=== PATIENT | female | born 1990 | race Caucasian/White ===

== ENCOUNTER 2017-03-15 13:24 | Emergency (ER) | payer SELFPAY ==
[~2017-03-15] VITALS: Ht 160 cm; Wt 77.1 kg
--- NOTE | 2017-03-15 13:45 | ED EENT ---
History of Present Illness General Chief Complaint: Nasal Problems Stated Complaint: NOSE BLEED/VOMITED BLOOD THIS A.M. Source: patient Exam Limitations: no limitations History of Present Illness Time seen by provider: 13:40 Initial Comments To ER with reports of a nosebleed and vomiting blood this morning. Patient states she was walking back to her house and about 10 minutes after arriving home she had blood coming out both sides of her nose. She leaned back in an attempt to stop this and took an aspirin. I'm not clear on why she took an aspirin. She then vomited blood a few minutes later and the nose bleed returned. Currently no bleeding and no history of sinus congestion, pain or nosebleeds. Timing/Duration: this morning Severity: moderate Location: nose Prearrival Treatment: no prearrival treatment Associated Symptoms: denies symptoms Review of Systems Constitutional: see HPI Eyes: No Symptoms Reported Ears: No Symptoms Reported Nose: see HPI, clots, epistaxis Mouth: no symptoms reported Throat: no symptoms reported Respiratory: no symptoms reported Cardiovascular: no symptoms reported Musculoskeletal: no symptoms reported Skin: no symptoms reported Neurological: No Symptoms Reported Hematologic/Lymphatic: No Symptoms Reported Immunological/Allergic: no symptoms reported Past Uezlpuj-Dkilnd-Hknhiw Hx Patient Social History Recent Foreign Travel: No Contact w/Someone Who Travel: No Physical Exam Vital Signs Vital Sign - Last 12Hours 03/15/17 13:39 Temp 98.1 Pulse 70 Resp 16 B/P (MAP) 103/57 Pulse Ox 99 O2 Delivery Room Air General Appearance: WD/WN, no apparent distress Eyes: bilateral eye normal inspection, bilateral eye PERRL, bilateral eye EOMI Ears: bilateral ear auricle normal, bilateral ear canal normal, bilateral ear TM normal Nose: other (there is no blood fresh were clotted in either nostril. There is no blood in the oropharynx.) Mouth/Throat: normal mouth inspection, pharynx normal Neck: non-tender, full range of motion Respiratory: normal breath sounds, no respiratory distress, no accessory muscle use Gastrointestinal: normal bowel sounds, non tender, soft Neurologic/Psychiatric: alert, normal mood/affect, oriented x 3 Skin: normal color, warm/dry Progress/Results/Core Measures Results/Orders Lab Results Laboratory Tests Test 03/15/17 13:48 Range/Units White Blood Count 11.8 H 4.3-11.0 10^3/uL Red Blood Count 6.39 H 4.35-5.85 10^6/uL Hemoglobin 13.4 11.5-16.0 G/DL Hematocrit 42 35-52 % Mean Corpuscular Volume 65 L 80-99 FL Mean Corpuscular Hemoglobin 21 L 25-34 PG Mean Corpuscular Hemoglobin Concent 32 32-36 G/DL Red Cell Distribution Width 17.3 H 10.0-14.5 % Platelet Count 376 130-400 10^3/uL Mean Platelet Volume 7.4-10.4 FL My Orders Orders - REECE JAY APRN Cbc No Diff (03/15/17 13:38) Vital Signs/I&O Vital Sign - Last 12Hours 03/15/17 13:39 Temp 98.1 Pulse 70 Resp 16 B/P (MAP) 103/57 Pulse Ox 99 O2 Delivery Room Air Departure Impression Impression: Primary Impression: History of epistaxis Disposition: HOME, SELF-CARE Condition: Stable Departure-Patient Inst. Decision time for Depature: 13:59 Referrals: NO,LOCAL PHYSICIAN (PCP/Family) Primary Care Physician Patient Instructions: Nosebleeds (DC) Add. Discharge Instructions: 1. If the nosebleed recurs pinch her nostrils together and lean forward for about 10 minutes. If this does not stop the bleeding then presented to the emergency room 2. Follow-up with your regular doctor later this week. Return to the emergency room for any concerns All discharge instructions reviewed with patient and/or family. Voiced understanding. REECE JAY APRN Mar 15, 2017 13:45
[2017-03-15 13:55] LABS: MEAN CORPUSCULAR HEMOGLOBIN 21 PG (25-34); MEAN CORPUSCULAR HGB CONC 32 G/DL (32-36); MEAN CORPUSCULAR VOLUME 65 FL (80-99); PLATELET COUNT 376 10^3/uL (130-400); RED BLOOD COUNT 6.39 10^6/uL (4.35-5.85); RED CELL DISTRIBUTION WIDTH 17.3 % (10.0-14.5); WHITE BLOOD COUNT 11.8 10^3/uL (4.3-11.0)
[2017-03-15 14:03] VITALS: BP 108/60
== END 2017-03-15 14:03 | disposition home or self-care (01) ==
LOC: ER 13:27
DX: R04.0 Epistaxis (principal)
CPT/HCPCS: 36415; 85027; 99282